=== PATIENT | male | born 1965 | race Two or more races ===

== ENCOUNTER 2024-08-30 23:08 | Emergency (ER) | payer MEDICAID, SELFPAY ==
[2024-08-30 23:20] VITALS: BP 139/73; PULSE 100; RESP 26; TEMP 37.8; O2SAT 92; BMI 30.9
--- NOTE | 2024-08-30 23:27 | XR_ITS ---
Examination: AP chest single view Technique: AP portable upright chest single view Exam date and time: August 30, 2024 11:35 PM Comparison September 25, 2014 Indications: Onset SOB today Findings: Normal heart size No pneumonia or pulmonary edema Old deformity right lower ribs Impression: No active disease
--- NOTE | 2024-08-30 23:28 | PD.EDRME ---
Rapid Medical Screening Exam E Arrival date/time: 08/30/24 23:08 58M with history of asthma presents to ED with 2 days of cough, wheezing, and SOB. Chief Complaint: Shortness of Breath/Dyspnea Time Seen by Provider: 08/30/24 23:12 Vital signs: Vital Signs Temperature 100.1 F 08/30/24 23:20 Pulse Rate 100 08/30/24 23:20 Respiratory Rate 26 H 08/30/24 23:20 Blood Pressure 139/73 H 08/30/24 23:20 Pulse Oximetry (%) 92 L 08/30/24 23:20 Oxygen Delivery Method Room Air 08/30/24 23:20 RME Narrative: 58-year-old male presenting to the emergency department with shortness of breath x 3 hours. Last ED evaluation was 7 or 8 years ago. Patient states that his asthma is worse with cough today and flulike symptoms. Getting and that he had an acute onset of asthma attack that started tonight. Subjective fever at home. Generally feels with general body aches x 2 days. The patient not taken any Tylenol or Motrin. He is otherwise taking all his asthma medications. The patient did take [id number]-[id number] cough medicine for his cough that did not make it better. Past medical history includes asthma and bronchitis.
[2024-08-30 23:32] VITALS: PULSE 92; RESP 24; O2SAT 91
[2024-08-30] MEDS: IPRATROPIUM RT 0.5 MG/ 2.5 ML NEBU 1 MG INH (23:40)
[2024-08-30] MEDS: BUDESONIDE RT 0.5 MG/2 ML NEBU INH (23:41)
[2024-08-30] MEDS: LEVALBUTEROL RT 1.25 MG/0.5 ML NEBU 5 MG INH (23:41)
[2024-08-30] MEDS: SODIUM CHLORIDE RT SOL 0.9% 3 ML NEBU INH (23:41)
[2024-08-30 23:46] VITALS: PULSE 89; RESP 22; O2SAT 93
--- NOTE | 2024-08-30 23:56 | EDNOTE_ITS ---
ED SOB =RME/HPI General Chief Complaint: Shortness of Breath/Dyspnea Stated Complaint: DIFFICULTY BREATHING Time Seen by Provider: 08/30/24 23:12 Arrival date/time: 08/30/24 23:08 Limitations: no limitations RME / HPI RME / HPI Narrative: Dr. [facility]as's Main ED Evaluation: 58-year-old male presenting to the emergency department with shortness of breath x 3 hours. Last ED evaluation was 7 or 8 years ago. Patient states that his asthma is worse with cough today and flulike symptoms. Getting and that he had an acute onset of asthma attack that started tonight. Subjective fever at home. Generally feels with general body aches x 2 days. The patient not taken any Tylenol or Motrin. He is otherwise taking all his asthma medications. The patient did take ikfj-ecx-lgvzvgz cough medicine for his cough that did not make it better. Past medical history includes asthma and bronchitis. Related Data Home Medications ?Medication ?Instructions ?Recorded ?Confirmed Albuterol Sulfate HFA (INHALER) 2 puff inhalation Q6HR PRN 09/23/14 (PROVENTIL HFA (INHALER)) WHEEZING #0 inhalations albuterol sulfate 2.5 mg/3 mL 2.5 mg HHN QID PRN WHEEZING #0 ea 09/23/14 (0.083 %) solution for nebulization Previous Rx's ?Medication ?Instructions ?Recorded Theophylline Anhydrous 12 HR * 300 mg PO BID ##60 09/25/14 (PAUL DUR *) prednisone 20 mg tablet 40 mg (2 x 20 mg) PO QDAY #30 tabs 09/25/14 albuterol sulfate 90 mcg/actuation 2 inh inhalation QID PRN shortness 08/31/24 breath activated powder inhaler of breath 7 days #1 ea prednisone 20 mg tablet See Taper PO QDAY #20 tabs 08/31/24 Allergies Allergy/AdvReac Type Severity Reaction Status Date / Time NKA* Allergy Uncoded 09/24/14 08:36 Review of Systems Review of Systems Systems Reviewed: All systems reviewed, normal except as documented Constitutional Constitutional: Reports malaise and Reports other (Body aches) ENT Comments: Runny nose Respiratory Respiratory: Reports cough Comments: Wheezing Neurologic Comments: No mental status changes. Allergic/Immunologic Comments: Subjective fever at home Past Medical History Past Medical History CARDIAC: Negative Congestive Heart Failure RESPIRATORY: Negative Chronic Obstructive Pulmonary Disease (COPD) GENITOURINARY: Negative Renal Disease ENDOCRINE: Negative Diabetes Mellitus Type 1 or Diabetes Mellitus Type 2 Social History SMOKING STATUS: Current every day smoker ED Exam General Limitations: Present no limitations General appearance: Present alert and in no apparent distress Head Head exam: Present atraumatic Eye Eye exam: Present normal appearance and EOMI; Absent scleral icterus ENT ENT exam: Present normal exam, normal oropharynx and TM's normal bilaterally Neck Neck exam: Present normal inspection, full ROM and trachea midline Chest Chest inspection: Present normal inspection and symmetric chest wall rise Respiratory Respiratory exam: Present wheezes; Absent stridor, accessory muscle use or prolonged expiratory phase Cardiovascular Cardiovascular exam: Present regular rate, normal rhythm and normal heart sounds Abdominal Exam Abdominal exam: Present soft and normal bowel sounds Extremities Exam Extremities exam: Present normal inspection and full ROM Back Exam Back exam: Present normal inspection and full ROM Neurological Exam Neurological exam: Present alert, oriented X3 and CN II-XII intact Psychiatric Psychiatric exam: Present normal affect and normal mood Skin Skin exam: Present warm, dry, intact and normal color Course Course Course Narrative: Patient getting a DuoNeb. CXR is ordered for determining the etiology of shortness of breath. Quality Measures none Orders Category Date Time Status Bedside COVID-19 Antigen Test NOW Care 08/30/24 23:27 Active Bedside Influenza A&B Antigen Test NOW Care 08/30/24 23:27 Completed EKG (ED ONLY) *Do not use* NOW Care 08/30/24 23:21 Completed EKG (ED Only) Stat Exams 08/30/24 23:21 Ordered XR chest 1V portable Stat Exams 08/30/24 23:27 Completed CBC Stat Lab 08/30/24 23:28 Completed CMP [Comprehensive Metabolic Panel] Stat Lab 08/30/24 23:28 Completed Procalcitonin Stat Lab 08/30/24 23:28 Completed Troponin I Stat Lab 08/30/24 23:28 Completed Budesonide Rt [Pulmicort Rt Minna] Med 08/30/24 23:29 Discontinued 0.5 mg INH X1 ONE Dexamethasone Inj [Decadron Inj] Med 08/30/24 23:27 Discontinued 20 mg PO X1 ONE Ipratropium [place] Rt Minna [Atrovent Rt Minna] Med 08/30/24 23:27 Discontinued 1 mg INH X1 ONE Levalbuterol Rt [Xopenex Rt Minna] Med 08/30/24 23:27 Discontinued 5 mg INH X1 ONE Sodium Chloride Rt Minna 0.9% [NS Rt Minna 0.9%] Med 08/30/24 23:27 Active 3 ml INH PRN PRN Oxygen Delivery NOW RT 08/30/24 23:27 Active Vital Signs Vital signs: Vital Signs Temperature 100.1 F 08/30/24 23:20 Pulse Rate 100 08/30/24 23:20 Respiratory Rate 26 H 08/30/24 23:20 Blood Pressure 139/73 H 08/30/24 23:20 Pulse Oximetry (%) 92 L 08/30/24 23:20 Oxygen Delivery Method Room Air 08/30/24 23:20 Shortness of Breath / Dyspnea MDM Narrative MDM Narrative:: Differential diagnosis includes asthma exacerbation, pneumonia, viral syndrome, COVID, RSV, influenza Patient data External records reviewed:: [facility] previous records (Per chart review, patient has no previous ED visits or admissions to this facility.) Clinical information provided by:: patient Social determinants that could affect healthcare access:: none Patient has the following chronic illnesses:: none How is presenting disease/condition affected by chronic disease/condition?: no chronic disease Evaluation data The following diagnostics were reviewed and interpreted by me:: lab results, radiology exam(s) and EKG tracing(s) Lab and/or radiology exams considered but not ordered:: none Interpretation Summary: Bedside COVID and Influenza are negative, WBC count is 14.9, Glucose is 144, Troponin is normal, Procalcitonin is normal, according to my interpretation. EKG done at 0505, NSR, rate of 88, no ST elevations or depressions, QTc: 414, no STEMI, according to my interpretation. ------- I have personally reviewed the radiology data and agree with the radiologist's interpretation below: [facility] Report Signed Patient: MARILIA SILVA. Record#: [id number] Birthdate: 1965 Age/Sex: 58 / M Location: [facility] Attending Dr: Ordering Physician: Carrington Cain PA-C Date of Service: 08/30/24 Procedure(s): XR chest 1V portable Accession Number(s): [id number] cc: Keven Rubio MD; Carrington Cain PA-C~ Examination: AP chest single view Technique: AP portable upright chest single view Exam date and time: August 30, 2024 11:35 PM Comparison September 25, 2014 Indications: Onset SOB today Findings: Normal heart size No pneumonia or pulmonary edema Old deformity right lower ribs Impression: No active disease Dictated By: Keven Rubio MD Signed By: <Electronically signed by Keven Rubio MD in OV> 08/30/24 9131 Medications / Prescriptions Medications or Prescriptions considered but not ordered:: none Medication administrations:: Medication Administration History Sodium Chloride (Sodium Chloride Rt Minna 0.9% 3 Ml Nebu) 3 ml INH PRN PRN PRN Reason: SOLN Stop: 09/29/24 23:26 Last Admin: 08/30/24 23:41 Dose: 3 ml Documented By: ARCELIA Discontinued Medications Budesonide (Budesonide Rt 0.5 Mg/2 Ml Nebu) 0.5 mg INH X1 ONE Stop: 08/30/24 23:30 Last Admin: 08/30/24 23:41 Dose: 0.5 mg Documented By: ARCELIA Dexamethasone Sodium Phosphate (Dexamethasone Sod Phos Inj 10 Mg/Ml Vial) 20 mg PO X1 ONE Stop: 08/30/24 23:28 Last Admin: 08/31/24 00:02 Dose: 20 mg Documented By: ROXANA Ipratropium [place] (Ipratropium Rt 0.5 Mg/ 2.5 Ml Nebu) 1 mg INH X1 ONE Stop: 08/30/24 23:28 Last Admin: 08/30/24 23:40 Dose: 1 mg Documented By: ARCELIA Levalbuterol HCl (Levalbuterol Rt 1.25 Mg/0.5 Ml Nebu) 5 mg INH X1 ONE Stop: 08/30/24 23:28 Last Admin: 08/30/24 23:41 Dose: 5 mg Documented By: ARCELIA see above Consultations Consultation(s) initiated? (list below): No Diagnosis Shortness of Breath Differential Diagnosis: pulmonary embolism and other (Differential diagnosis includes asthma exacerbation, pneumonia, viral syndrome, COVID, RSV, influenza) Most likely diagnosis given after review of the tests above:: see below Admission Indicated Admission indicated?: not indicated Admission Request Was there a request for admission?: No Disposition Plan Disposition Plan: Discharge Discharge Attestation Discharge Attestation: The patient and all family members were given an opportunity to ask questions and understood the discharge instructions. Discharge instructions specifically effects, indications for sooner follow up or return to the emergency department, and the expected course of current diagnosis. Patient condition: Stable Discharge Plan Plan Patient Disposition: HOME (Self Care) Patient condition on transfer: Stable Prescriptions/Referrals Prescriptions/Med Rec: New prednisone 20 mg tablet See Taper PO QDAY Qty: 20 0RF Taper: Prednisone Taper 40 mg DAILY for 3 Days and 0 Hour 20 mg DAILY for 3 Days and 0 Hour 10 mg DAILY for 2 Days and 0 Hour 5 mg DAILY for 2 Days and 0 Hour albuterol sulfate 90 mcg/actuation aerosol powdr breath activated 2 inh inhalation QID PRN (Reason: shortness of breath) 7 Days Qty: 1 1RF No Action Albuterol Sulfate HFA (INHALER) (PROVENTIL HFA (INHALER)) 8.5 GM HFA.AER.AD 2 puff Inhalation Q6HR PRN (Reason: WHEEZING) Qty: 0 albuterol sulfate 2.5 MG/0.5 ML solution for nebulization 2.5 mg HHN QID PRN (Reason: WHEEZING) Qty: 0 prednisone 20 MG tablet 40 mg PO QDAY Qty: 30 0RF Theophylline Anhydrous 12 HR * (PAUL DUR *) 300 MG TAB.SR.12H 300 mg PO BID Qty: 60 0RF Referrals: Antonio Romero [Primary Care Provider] - In 1 week Problem List Clinical Impression: Asthma with exacerbation Patient/Caregiver Discharge Instructions Education Materials: ED Asthma, Acute (Adult) Additional Instructions: Take the antibiotics as prescribed. Return to Emergency Department worsening symptoms or any other concerns. Please stop smoking if you are a smoker Print Language: Croatian Stand Alone Forms: [facility] Award Info., Patient Portal Info Letter
[2024-08-31] VITALS (7 sets, daily range): BP systolic 114–131; BP diastolic 50–79; PULSE 76–94; RESP 12–24; TEMP 36.7; O2SAT 90–98
[2024-08-31] MEDS: DEXAMETHASONE SOD PHOS INJ 10 MG/ML VIAL 20 MG PO (00:02)
[2024-08-31 00:17] LABS: Basophils # (Auto) 0.1 Thou/mm3 (0.0-0.2); Basophils % (Auto) 1 % (0-2.5); Eosinophils # (Auto) 0.4 Thou/mm3 (0.0-0.5); Eosinophils % (Auto) 3 % (0-10); Hematocrit 43.5 % (41.0-53.0); Hemoglobin 14.7 g/dL (13.5-16.0); Immature Granulocytes % (Auto) 1 % (0-0); Immature Granulocytes Auto 0.07 Thou/mm3 (0.00-0.00); Lymphocytes # (Auto) 2.6 Thou/mm3 (1.0-4.8); Lymphocytes % (Auto) 17 % (10-50); Mean Corpuscular HGB Conc 33.8 g/dl (31.0-37.0); Mean Corpuscular Hemoglobin 29.6 pg (25.0-35.0); Mean Corpuscular Volume 88 fL (80-100); Monocytes # (Auto) 1.2 Thou/mm3 (0.0-0.8); Monocytes % (Auto) 8 % (0-12); Neutrophils # (Auto) 10.5 Thou/mm3 (1.8-7.7); Neutrophils % (Auto) 71 % (37-80); Nucleated Red Blood Cell % 0 /100 WBC (0); Platelet Count 215 Thou/mm3 (140-440); RDW Standard Deviation 42.3 fL (35.1-43.9); Red Blood Count 4.96 Miln/mm3 (4.50-5.90); White Blood Count 14.9 Thou/mm3 (3.8-10.6)
[2024-08-31 01:00] LABS: Alanine Aminotransferase 30 U/L (10-49); Albumin, Serum 4.2 gm/dL (3.5-5.0); Albumin/Globulin Ratio 1.4 (1.2-2.2); Alkaline Phosphatase 75 U/L (46-116); Anion Gap 9 (7-16); Aspartate Amino Transferase 22 U/L (0-34); BUN/Creatinine Ratio 12 Ratio (12-20); Bilirubin,Total 0.4 mg/dL (0.3-1.2); Blood Urea Nitrogen 12 mg/dL (9-23); Calcium 10.1 mg/dL (8.3-10.6); Calcium (Corrected) 10.1 mg/dL (8.5-10.1); Carbon Dioxide 25.8 mMol/L (20.0-31.0); Chloride 104 mMol/L (98-107); Estimated Creatinine Clearance 88.7 mL/min (>60); Globulin 3.1 gm/dL (2.3-3.5); Glucose 144 mg/dL (74-106); Osmolality,Calculated 280 (275-295); Potassium 3.4 mMol/L (3.4-5.1); Procalcitonin 0.08 ng/ml (0.0-0.49); Sodium 139 mMol/L (136-145); Total Protein 7.3 gm/dL (5.7-8.2); Troponin I < 0.020 ng/mL (0.0-0.045); eGFR > 60 See Note
== END 2024-08-31 05:41 | disposition home or self-care (01) ==
PROVIDERS: Physician Assistant; Emergency Provider Emergency Medicine; PCP Physician Assistant
DX: J45.901 Unspecified asthma with (acute) exacerbation (principal); F17.210 Nicotine dependence, cigarettes, uncomplicated
CPT/HCPCS: 36415; 71045; 80053; 84145; 84484; 85025; 87400; 87811; 93005; 94644; 99283; J1100

== ENCOUNTER 2024-10-21 21:44 | Emergency (ER) | payer MEDICAID, SELFPAY ==
[2024-10-21 21:57] VITALS: BP 168/99; PULSE 120; RESP 20; TEMP 37.4; O2SAT 91
--- NOTE | 2024-10-21 21:58 | XR_ITS ---
Examination: PA lateral chest 2 views Technique: Upright PA lateral chest 2 views Exam date and time: October 21, 2024 1006 hrs. Indications: Onset chest pain today. Findings: Normal heart size No pneumonia or pulmonary edema The osseous structures are intact Impression: No active disease
--- NOTE | 2024-10-21 21:58 | EKG_ITS ---
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
--- NOTE | 2024-10-21 22:00 | PD.EDRME ---
Rapid Medical Screening Exam RME Arrival date/time: 10/21/24 21:44 58-year-old male past medical history of hypertension and asthma presents emergency department complaining of shortness of breath and difficulty breathing. Chief Complaint: Shortness of Breath/Dyspnea Time Seen by Provider: 10/21/24 21:56 Vital signs: Vital Signs Temperature 99.4 F 10/21/24 21:57 Pulse Rate 120 H 10/21/24 21:57 Respiratory Rate 20 10/21/24 21:57 Blood Pressure 168/99 H 10/21/24 21:57 Pulse Oximetry (%) 91 L 10/21/24 21:57 Oxygen Delivery Method Room Air 10/21/24 21:57 Vital signs reviewed by provider: Yes
[2024-10-21 22:36] LABS: Basophils # (Auto) 0.1 Thou/mm3 (0.0-0.2); Basophils % (Auto) 1 % (0-2.5); Eosinophils # (Auto) 0.2 Thou/mm3 (0.0-0.5); Eosinophils % (Auto) 1 % (0-10); Hematocrit 45.3 % (41.0-53.0); Hemoglobin 15.4 g/dL (13.5-16.0); Immature Granulocytes % (Auto) 1 % (0-0); Immature Granulocytes Auto 0.08 Thou/mm3 (0.00-0.00); Lymphocytes # (Auto) 1.3 Thou/mm3 (1.0-4.8); Lymphocytes % (Auto) 11 % (10-50); Mean Corpuscular Hemoglobin 29.7 pg (25.0-35.0); Mean Corpuscular Volume 87 fL (80-100); Monocytes # (Auto) 1.3 Thou/mm3 (0.0-0.8); Monocytes % (Auto) 10 % (0-12); Neutrophils # (Auto) 9.5 Thou/mm3 (1.8-7.7); Neutrophils % (Auto) 77 % (37-80); Nucleated Red Blood Cell % 0 /100 WBC (0); Platelet Count 215 Thou/mm3 (140-440); RDW Standard Deviation 43.8 fL (35.1-43.9); Red Blood Count 5.19 Miln/mm3 (4.50-5.90); White Blood Count 12.3 Thou/mm3 (3.8-10.6)
[2024-10-21 22:44] LABS: INR 1.1 (0.9-1.3); Partial Thromboplastin Time 28.6 Seconds (22.0-36.0); Prothrombin Time 11.9 Seconds (9.0-12.2)
[2024-10-21] MEDS: predniSONE 20 MG TABLET 60 MG PO (22:49)
[2024-10-21 22:52] LABS: B-Type Natriuretic Peptide < 20 pg/mL (0-100)
[2024-10-21 22:53] LABS: Alanine Aminotransferase 48 U/L (10-49); Albumin, Serum 4.6 gm/dL (3.5-5.0); Albumin/Globulin Ratio 1.4 (1.2-2.2); Alkaline Phosphatase 75 U/L (46-116); Anion Gap 9 (7-16); Aspartate Amino Transferase 37 U/L (0-34); BUN/Creatinine Ratio 14 Ratio (12-20); Bilirubin,Total 0.5 mg/dL (0.3-1.2); Blood Urea Nitrogen 17 mg/dL (9-23); Carbon Dioxide 26.1 mMol/L (20.0-31.0); Chloride 105 mMol/L (98-107); Creatinine (Component) 1.2 mg/dL (0.6-1.3); Globulin 3.3 gm/dL (2.3-3.5); Glucose 103 mg/dL (74-106); Osmolality,Calculated 280 (275-295); Potassium 3.4 mMol/L (3.4-5.1); Sodium 140 mMol/L (136-145); Total Protein 7.9 gm/dL (5.7-8.2); Troponin I < 0.020 ng/mL (0.0-0.045); eGFR > 60 See Note
--- NOTE | 2024-10-21 22:58 | EDNOTE_ITS ---
ED SOB =RME/HPI General Chief Complaint: Shortness of Breath/Dyspnea Stated Complaint: DIFFICULTY BREATHING, COLD SYMPTOMS Time Seen by Provider: 10/21/24 21:56 Arrival date/time: 10/21/24 21:44 RME / HPI RME / HPI Narrative: 10/21/24 21:44 58-year-old male past medical history of hypertension and asthma presents emergency department complaining of shortness of breath and difficulty breathing. ----- Dr. Barkley?s Main ED Evaluation: 58yo male with a history of HTN, asthma presents to the ED for a chief complaint of shortness of breath x this morning. Patient's daughter states the patient was initially not wanting to come to the ED earlier this afternoon, but states his shortness of breath was progressively getting worse, so she brought him in for evaluation. He used his breathing treatments and inhaler at home without any alleviation of symptoms. Patient reports associated nausea, chills, sweating, chest pain with deep breathes and while coughing, and a productive cough with white phlegm. He denies any fever, abdominal pain or any other associated symptoms. Denies any tobacco use. No known allergies. Related Data Home Medications ?Medication ?Instructions ?Recorded ?Confirmed Albuterol Sulfate HFA (INHALER) 2 puff inhalation Q6HR PRN 09/23/14 (PROVENTIL HFA (INHALER)) WHEEZING #0 inhalations albuterol sulfate 2.5 mg/3 mL 2.5 mg HHN QID PRN WHEEZ ING #0 ea 09/23/14 (0.083 %) solution for nebulization Previous Rx's ?Medication ?Instructions ?Recorded Theophylline Anhydrous 12 HR * 300 mg PO BID ##60 09/11 01/23 (PAUL DUR *) prednisone 20 mg tablet 40 mg (2 x 20 mg) PO QDAY #3 0 tabs 09/25/14 albuterol sulfate 90 mcg/actuation 2 inh inhalation QI D PRN shortness 08/31/24 breath activated powder inhaler of breath 7 days #1 ea prednisone 20 mg tablet See Taper PO QDAY #20 tabs 1 11/01/23 acetaminophen 500 mg tablet 1,000 mg (2 x 500 mg) PO Q 6H PRN 10/22/24 fever or pain 5 days #40 tabs albuterol sulfate 90 mcg/actuation 2 puff inhalation Q 6H PRN 10/22/24 aerosol inhaler shortness of breath or wheez ing #8.5 grams ibuprofen 600 mg tablet 600 mg PO Q6H PRN fever or p ain 10/22/24 #20 tabs [id number] 2.5 20 ml PO Q4H PRN coug h #118 mL 10/22/24 mg-5 mg-50 mg/5 mL oral liquid (Robitussin Cough and Cold CF) prednisone 50 mg tablet 50 mg PO QDAY 5 days #5 tabs 10/22/24 Allergies Allergy/AdvReac Type Severity Reaction Status Date / Time NKA* Allergy Uncoded 09/24/14 08:36 Review of Systems Review of Systems Systems Reviewed: All systems reviewed, normal except as documented ED Exam Narrative Physical exam: GENERAL APPEARANCE: alert and oriented x 4, well-developed, well-nourished, no acute distress VITALS: All vitals were reviewed and the pulse ox is 91% on room air, which is hypoxic according to my interpretation. HEENT: Normocephalic, atraumatic; pupils equal, round, reactive to light; EOMI; mucous membranes pink, moist; oropharynx clear NECK: Supple LUNGS: tachypneic, mild diffuse wheezes, no rales, mild rhonchi bilaterally HEART: Tachycardic; regular rhythm; normal S1, S2; no murmurs ABDOMEN: non distended; normal BS; soft, no tenderness, no guarding, no rebound; no masses, no organomegaly, no hernia BACK: no CVA tenderness EXTREMITIES: atraumatic; no edema NEUROLOGIC: awake; alert and oriented x4; cranial nerves II-XII grossly intact; no focal sensory or motor deficits PSYCHIATRIC: appropriate mood and affect SKIN: warm, dry, normal color; no rashes Course Course Course Narrative: CXR is ordered for determining the etiology of shortness of breath. 2301: Sepsis alert initiated. Orders made at this time are congruent with ED Adult Sepsis Order List. Re-evaluation is to be completed. 0046: NS IVR infused. 0116: Sepsis reassessment performed consisting of lab review, vitals, physical exam including auscultation of heart, lungs, and visual evaluation of capillary refills, mucosal membranes and extremities. Quality Measures none Orders Category Date Time Status CT Screening NOW Care 10/21/24 23:04 Completed Rate Analyst STAT Care 10/21/24 23:02 Completed Continuous Pulse Oximetry STAT Care 10/21/24 23:02 Completed EKG (ED ONLY) *Do not use* NOW Care 10/21/24 21:58 Completed In and Out Catheter X1PRN Care 10/21/24 23:02 Completed Insert IV NOW Care 10/21/24 23:02 Completed NPO STAT Care 10/21/24 23:02 Completed Strict Intake and Output Routine Care 10/21/24 23:[address] angio chest Stat Exams 10/21/24 23:04 Taken EKG (ED Only) Stat Exams 10/21/24 21:58 Draft XR chest 2V Stat Exams 10/21/24 21:58 Completed Arterial Blood Gas Stat Lab 10/21/24 23:31 Completed B-Type Natriuretic Peptide Stat Lab 10/21/24 22:15 Completed Blood Culture (Lab) Stat Lab 10/21/24 23:09 Received CBC Stat Lab 10/21/24 22:15 Completed Comprehensive Metabolic Panel Stat Lab 10/21/24 22:15 Completed LDH (Lactate Dehydrogenase) Stat Lab 10/21/24 22:15 Completed Lactate (Lactic Acid) Stat Lab 10/21/24 23:09 Completed Lipase Stat Lab 10/21/24 22:15 Completed Magnesium Stat Lab 10/21/24 22:15 Completed Partial Thromboplastin Time Stat Lab 10/21/24 22:15 Completed Phosphorous Stat Lab 10/21/24 22:15 Completed Procalcitonin Stat Lab 10/21/24 22:15 Completed Prothrombin Time with INR Stat Lab 10/21/24 22:15 Completed Troponin I Stat Lab 10/21/24 22:15 Completed ALBUTEROL RT 0.5ml [Proventil Rt 0.5ml] Med 10/21/24 21:58 Discontinued 10 mg INH X1 ONE Acetaminophen Tab [Tylenol ES Tab] Med 10/21/24 23:05 Discontinued 1,000 mg PO X1 ONE Ibuprofen Tab [Motrin Tab] Med 10/21/24 23:11 Discontinued 600 mg PO X1 ONE Ipratropium Lenorah Rt Minna [Atrovent Rt Minna] Med 10/21/24 21:58 Discontinued 1 mg INH X1 ONE Sodium Chloride 0.9% 1000 ml [Ns] 1,000 ml Med 10/21/24 23:11 Discontinued IV 999 mls/hr Sodium Chloride Rt Minna 0.9% [NS Rt Minna 0.9%] Med 10/21/24 21:58 Discontinued 3 ml INH PRN PRN cefTRIAXone [Rocephin] 1,000 mg Med 10/21/24 23:01 Discontinued Sodium Chloride 0.9% (P) [Ns 0.9% (P)] 50 ml IV X1 cloNIDine HCL [Catapres] Med 10/21/24 23:11 Discontinued 0.1 mg PO X1 ONE predniSONE Med 10/21/24 21:58 Discontinued 60 mg PO X1 ONE Oxygen Delivery NOW RT 10/21/24 21:58 Completed Vital Signs Vital signs: Vital Signs Temperature 99.4 F 10/21/24 21:57 Pulse Rate 120 H 10/21/24 21:57 Respiratory Rate 20 10/21/24 21:57 Blood Pressure 168/99 H 10/21/24 21:57 Pulse Oximetry (%) 91 L 10/21/24 21:57 Oxygen Delivery Method Room Air 10/21/24 21:57 Shortness of Breath / Dyspnea MDM Narrative MDM Narrative:: Scribe Attestation: 10/21/24 Bhavani Yoo am scribing for and in the presence of Dr. Barkley. Patient data External records reviewed:: [facility] previous records (Per chart review, patient was seen here on 08/30/24 for asthma exacerbation.) Clinical information provided by:: patient and family Social determinants that could affect healthcare access:: none Patient has the following chronic illnesses:: asthma, HTN How is presenting disease/condition affected by chronic disease/condition?: exacerbated by Evaluation data The following diagnostics were reviewed and interpreted by me:: lab results, radiology exam(s) and EKG tracing(s) Lab and/or radiology exams considered but not ordered:: none Interpretation Summary: WBC count is elevated at 12.3, PT and INR are normal, PTT is normal, CMP is normal, troponin is normal, BNP is normal, Bedside Influenza is positive, according to my interpretation. EKGdone at 2216, sinus tachycardia, rate of 108, normal axis, no ectopy, no acute ischemia, according to my interpretation. Telerad Preliminary Report Draft Patient: MARILIA SILVA [facility]. Record#: [id number] Birthdate: 1965 Age/Sex: 58 / M Location: [facility] Attending Dr: Ordering Physician: Date of Service: Procedure(s): Accession Number(s): cc: ~ CT angiogram of the chest with intravenous contrast (axial sections with sagittal and coronal reformats) October 22, 2024 at 0018 hours Clinical History: Dyspnea. Technique:Helical axial sections with sagittal and coronal reformats of the chest were obtained with intravenous contrast. Iterative reconstruction technique was employed to reduce patient radiation exposure. 3D/MIP reconstructed images were also provided. Comparison: None. Findings: There is no filling defect within the pulmonary artery divisions to suggest pulmonary thromboembolism. The mediastinum demonstrates no evidence of mass or lymphadenopathy. The thoracic aorta is unremarkable. There is no pericardial effusion. The lungs are clear. No evidence of pleural effusion or pneumothorax. Degenerative changes of the imaged portions of the spine. No acute fractures. Chronic multilevel disc disease. Chronic healed right rib fractures. Liver steatosis. Impression: No CT evidence of pulmonary thromboembolism. Liver steatosis. Report Electronically Signed By: Kike Santiago 10/22/2024 1:08:22 AM Medications / Prescriptions Medications or Prescriptions considered but not ordered:: none Medication administrations:: Medication Administration History Discontinued Medications Acetaminophen (Acetaminophen 500 Mg Tablet) 1,000 mg PO X1 ONE Stop: 10/21/24 23:06 Last Admin: 10/21/24 23:22 Dose: 1,000 mg Documented By: CVL Albuterol (Albuterol Rt 2.5 Mg/0.5 Ml Nebu) 10 mg INH X1 ONE Stop: 10/21/24 21:59 Last Admin: 10/21/24 23:19 Dose: 10 mg Documented By: JUANCARLOS Clonidine (Clonidine Hcl 0.1 Mg Tablet) 0.1 mg PO X1 ONE Stop: 10/21/24 23:12 Last Admin: 10/22/24 01:24 Dose: Not Given Documented By: EE Non-Admin Reason: Contraindicated Ceftriaxone Sodium 1,000 mg/ (Sodium Chloride) 50 mls @ 100 mls/hr IV X1 ONE Stop: 10/21/24 23:30 Last Infusion: 10/22/24 00:46 Dose: Infused Documented By: Admin: 10/21/24 23:20 Dose: 100 mls/hr Documented By: CVL Sodium Chloride (Ns) 1,000 mls @ 999 mls/hr IV .Q1H1M ONE Stop: 10/22/24 00:11 Last Infusion: 10/22/24 00:46 Dose: Infused Documented By: Admin: 10/21/24 23:20 Dose: 999 mls/hr Documented By: KELLEE Ibuprofen (Ibuprofen Tab 600 Mg Tablet) 600 mg PO X1 ONE Stop: 10/21/24 23:12 Last Admin: 10/21/24 23:21 Dose: 600 mg Documented By: KELLEE Ipratropium Lenorah (Ipratropium Rt 0.5 Mg/ 2.5 Ml Nebu) 1 mg INH X1 ONE Stop: 10/21/24 21:59 Last Admin: 10/21/24 23:18 Dose: 1 mg Documented By: JUANCARLOS Prednisone (Prednisone 20 Mg Tablet) 60 mg PO X1 ONE Stop: 10/21/24 21:59 Last Admin: 10/21/24 22:49 Dose: 60 mg Documented By: MAYA Sodium Chloride (Sodium Chloride Rt Minna 0.9% 3 Ml Nebu) 3 ml INH PRN PRN PRN Reason: SOLN Stop: 11/20/24 21:57 Last Admin: 10/21/24 23:19 Dose: 3 ml Documented By: JUANCARLOS see above Consultations Consultation(s) initiated? (list below): No Diagnosis Shortness of Breath Differential Diagnosis: congestive heart failure, community acquired pneumonia, asthma with exacerbation, pulmonary embolism and other (PE, COVID, Influenza, viral URI) Most likely diagnosis given after review of the tests above:: see below Admission Indicated Admission indicated?: not indicated Admission Request Was there a request for admission?: No Disposition Plan Disposition Plan: Discharge Discharge Attestation Discharge Attestation: The patient and all family members were given an opportunity to ask questions and understood the discharge instructions. Discharge instructions specifically effects, indications for sooner follow up or return to the emergency department, and the expected course of current diagnosis. Patient condition: Stable Discharge Plan Plan Patient Disposition: HOME (Self Care) Disposition Comment: Stable for discharge Patient condition on transfer: Stable Prescriptions/Referrals Prescriptions/Med Rec: New acetaminophen 500 mg tablet 1,000 mg PO Q6H PRN (Reason: fever or pain) 5 Days Qty: 40 0RF ibuprofen 600 mg tablet 600 mg PO Q6H PRN (Reason: fever or pain) Qty: 20 0RF Robitussin Cough and Cold CF 2.5-5-50 mg/5 mL liquid 20 ml PO Q4H PRN (Reason: cough) Qty: 118 0RF prednisone 50 mg tablet 50 mg PO QDAY 5 Days Qty: 5 0RF albuterol sulfate 90 mcg/actuation HFA aerosol inhaler 2 puff inhalation Q6H PRN (Reason: shortness of breath or wheezing) Qty: 8.5 0RF No Action Albuterol Sulfate HFA (INHALER) (PROVENTIL HFA (INHALER)) 8.5 GM HFA.AER.AD 2 puff Inhalation Q6HR PRN (Reason: WHEEZING) Qty: 0 albuterol sulfate 2.5 MG/0.5 ML solution for nebulization 2.5 mg HHN QID PRN (Reason: WHEEZING) Qty: 0 prednisone 20 MG tablet 40 mg PO QDAY Qty: 30 0RF Theophylline Anhydrous 12 HR * (PAUL DUR *) 300 MG TAB.SR.12H 300 mg PO BID Qty: 60 0RF prednisone 20 mg tablet See Taper PO QDAY Qty: 20 0RF Taper: Prednisone Taper 40 mg DAILY for 3 Days and 0 Hour 20 mg DAILY for 3 Days and 0 Hour 10 mg DAILY for 2 Days and 0 Hour 5 mg DAILY for 2 Days and 0 Hour albuterol sulfate 90 mcg/actuation aerosol powdr breath activated 2 inh inhalation QID PRN (Reason: shortness of breath) 7 Days Qty: 1 1RF Referrals: [facility] [Outside] - In 1 week Problem List Clinical Impression: Influenza A, Upper respiratory infection, viral, Asthma exacerbation Patient/Caregiver Discharge Instructions Discharge Activity: activity as tolerated Education Materials: The Flu (Influenza), ED Influenza (Adult), ED URI, Viral, No Abx (Adult), Asthma Additional Instructions: Please return to the emergency department for any worsening or if you feel better within the next 48 hours and we will help you. Otherwise you should follow-up with your primary care doctor within the next several days. You have several prescriptions waiting for you at the pharmacy. Please take these as directed for symptom control of your influenza. Print Language: [place] Stand Alone Forms: [employer] Award Info., Patient Portal Info Letter
--- NOTE | 2024-10-21 23:04 | XR_ITS ---
Examination: CTA chest with intravenous contrast 2-D reconstructions 3-D reconstructions, vascular Date and time of exam: October 22, 2024 0018 hrs. Indications: Dyspnea today CTDI: vol (mGy) 23.4 DLP: (mGycm) 516 Technique: Multiple axial sections of the thorax have been obtained. 3 mm slice thickness, from below the hemidiaphragms to above the apices of the lungs. Mediastinal and lung density settings have been obtained. 2-D sagittal and coronal reconstructions. 3-D angiographic renderings, 3-D volume renderings, 3D post processing, vascular maximum intensity projections obtained. Contrast administered is 100 cc Isovue-370 intravenous. Low dose protocols were performed. One or more of the following dose reduction techniques were used; automated exposure control, adjustment of the mA and/or KV according to patient size, use of iterative reconstruction technique. Findings: Mildly enlarged right thyroid lobe No thoracic aortic aneurysm dilatation Pulmonary artery segments are not enlarged Pulmonary artery opacification is not optimal, no pulmonary artery emboli No paratracheal tracheobronchial or bronchopulmonary adenopathy Old right-sided rib deformities No pneumonia or pulmonary edema or pleural disease Diffuse fatty liver No pancreatic or adrenal mass Kidneys partially visualized no hydronephrosis Impression: Pulmonary artery opacification is not optimal, no pulmonary artery emboli No pneumonia, pulmonary edema or pleural disease
[2024-10-21 23:13] VITALS: PULSE 111; PULSE 96; RESP 18; RESP 94
[2024-10-21 23:16] VITALS: BP 139/80; PULSE 111; RESP 18; O2SAT 94
[2024-10-21] MEDS: IPRATROPIUM RT 0.5 MG/ 2.5 ML NEBU 1 MG INH (23:18)
[2024-10-21 23:19] VITALS: PULSE 111
[2024-10-21] MEDS: ALBUTEROL RT 2.5 MG/0.5 ML NEBU 10 MG INH (23:19)
[2024-10-21] MEDS: SODIUM CHLORIDE RT SOL 0.9% 3 ML NEBU INH (23:19)
[2024-10-21] MEDS: SODIUM CHLORIDE 0.9% 1000 ML 1,000 ML 999 ML IV (23:20)
[2024-10-21] MEDS: cefTRIAXone 1,000 MG in SODIUM CHLORIDE 0.9% (P) 50 ML 100 MG IV (23:20)
[2024-10-21 23:21] VITALS: PULSE 110; RESP 18; TEMP 37.4; O2SAT 96
[2024-10-21] MEDS: IBUPROFEN TAB 600 MG TABLET PO (23:21)
[2024-10-21 23:22] VITALS: TEMP 37.7
[2024-10-21 23:22] LABS: Lactate (Lactic Acid) 1.5 mMol/L (0.4-2.0)
[2024-10-21] MEDS: ACETAMINOPHEN 500 MG TABLET 1000 MG PO (23:22)
[2024-10-21 23:36] LABS: Lipase 44 U/L (12-53); Phosphorous 2.8 mg/dL (2.4-5.1)
[2024-10-21 23:39] LABS: Allen Test Performed/OK; Base Excess 2 (-3-3); HCO3 25 mEq/L (20-26); Inspired Oxygen, FIO2 45 %; O2 Saturation 97 % (91-98); PCO2 32 mmHg (32.0-48.0); PO2 76 mmHg (83-108); Puncture Site Right Radial
[2024-10-21 23:54] LABS: LDH (Lactate Dehydrogenase) 237 U/L (120-246); Procalcitonin 0.19 ng/ml (0.0-0.49)
[2024-10-22 01:00] VITALS: TEMP 37.2
--- NOTE | 2024-10-22 01:08 | PRELIM_ITS ---
CT angiogram of the chest with intravenous contrast (axial sections with sagittal and coronal reformats) October 22, 2024 at 0018 hours Clinical History: Dyspnea. Technique:Helical axial sections with sagittal and coronal reformats of the chest were obtained with intravenous contrast. Iterative reconstruction technique was employed to reduce patient radiation exposure. 3D/MIP reconstructed images were also provided. Comparison: None. Findings: There is no filling defect within the pulmonary artery divisions to suggest pulmonary thromboembolism. The mediastinum demonstrates no evidence of mass or lymphadenopathy. The thoracic aorta is unremarkable. There is no pericardial effusion. The lungs are clear. No evidence of pleural effusion or pneumothorax. Degenerative changes of the imaged portions of the spine. No acute fractures. Chronic multilevel disc disease. Chronic healed right rib fractures. Liver steatosis. Impression: No CT evidence of pulmonary thromboembolism. Liver steatosis. Report Electronically Signed By: Kike Santiago 10/22/2024 1:08:22 AM [EST]
[2024-10-22 01:23] VITALS: BP 122/65; PULSE 120; RESP 19; TEMP 37.4; O2SAT 95
[2024-10-22 01:25] VITALS: TEMP 37.2
[2024-10-22 01:37] VITALS: O2SAT 93
== END 2024-10-22 01:38 | disposition home or self-care (01) ==
LOC: SERX 10-22 02:31
PROVIDERS: Emergency Provider Emergency Medicine
DX: J10.1 Influenza due to other identified influenza virus with other respiratory manifestations (principal); J45.901 Unspecified asthma with (acute) exacerbation; R00.0 Tachycardia, unspecified; K76.0 Fatty (change of) liver, not elsewhere classified; I10 Essential (primary) hypertension
CPT/HCPCS: 36415; 36600; 71046; 71275; 80053; 81001; 82803; 83605; 83615; 83690; 83735; 83880; 84100; 84145; 84484; 85025; 85610; 85730; 87040; 87400; 87502; 87811; 93005; 94644; 96365; 99284; A4649; J0696; J7030; J7050; J7512; Q9967; A9270